=== PATIENT | male | born 1960 | race Caucasian/White ===

== ENCOUNTER → 2021-12-10 08:56 | Outpatient (BNVA) | payer OTHER, SELFPAY | PROVIDERS: PCP Internal Medicine; Visit Provider Psychiatry & Neurology Neurology | DX: G25.0 Essential tremor (principal); Z79.899 Other long term (current) drug therapy | CPT/HCPCS: 99212 ==

== ENCOUNTER → 2022-04-14 08:01 | Outpatient (BNVA) | payer OTHER, SELFPAY | PROVIDERS: PCP Internal Medicine; Visit Provider Psychiatry & Neurology Neurology | DX: G25.0 Essential tremor (principal) | CPT/HCPCS: 99212 ==

== ENCOUNTER 2023-10-19 12:26 | Outpatient (AMB) | payer OTHER, SELFPAY ==
--- NOTE | 2023-10-19 12:33 | A.OFFVIS_ITS ---
Vital Signs 10/19/23 12:35 Height 6 ft Weight 259 lb 6 oz BMI 35.2 BP 138/80 Blood Pressure Location Rt brachial Position Sitting Respiration 16 Pulse 61 Pulse Source Pulse Oximeter Pulse Oximetry (%) 96 Oxygen Delivery Method Room Air Intake Visit Reasons: 4mo f/u essential tremors - Confirmed Intake Note: Pt presents to the office for a follow up for familial tremors. 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 He reports mild improvement since he retired in Jun 2023. He is sleeping better. less stressed, exercising more etc.He is independent in his ADLS. He reported action and postural tremors since age 15 and was doing well on propranolol for 25 years . He was trialed on primidone and zonisamide and he did not notice much difference. He did not tolerate primidone . Anything that needs manual dexterity is harder. [facility] Medical History GERD (gastroesophageal reflux disease) Depression Surgical History History of vasectomy History of total knee replacement (TKR) Hx of knee surgery Hx of colonoscopy Family History Father Prostate cancer Bladder cancer Mother Skin cancer Brother Kidney stone Social History Household Members: Spouse Alcohol intake: current Alcohol intake frequency: a few times a week Alcohol type: beer Patient Tobacco Use Status: Never used Tobacco Current occupational status: employed Current occupation: dispatcher Physical Exam Vital Signs: Last Vital Signs Pulse 61 10/19/23 12:35 Resp 16 10/19/23 12:35 BP 138/80 10/19/23 12:35 Pulse Ox 96 10/19/23 12:35 Oxygen Delivery Method Room Air 10/19/23 12:35 BMI result Body Mass Index 35.2 Const General: cooperative, healthy appearing, comfortable and no acute distress Nutritional Appearance: overweight Orientation/consciousness: patient oriented x3 Limitations: no limitations HEENT Other: mild head tremors Eyes Pupils: Equal, round and reactive pupils present Neuro Other: Raymundo UE postural tremors No rest tremors Raymundo ACtion tremors- mild to moderate Voice tremors gait- no arm swing on left UE and rest tremors General: patient oriented x3 Cranial nerves: Yes Equal, round and reactive pupils present and Yes Normal facial strength present Cognition (Neuro): normal cognition Assessment & Plan Assessment & Plan (1) Familial tremor: Code(s): G25.0 - Essential tremor Category: Medical Plan He did not think fatimah trio will help him Will consider adding gabapentin continue propranolol LA 160mg qd Discussed about DBS and MR guided ultrasound therapy for tremors Coding Level of Care Code Est Pt Level 4 (31407) Diagnoses Familial tremor G25.0
[2023-10-19 12:35] VITALS: BP 138/80; PULSE 61; RESP 16; O2SAT 96; BMI 35.2
== END 2023-10-19 12:50 | disposition home or self-care (01) ==
PROVIDERS: PCP Internal Medicine; Visit Provider Psychiatry & Neurology Neurology
DX: G25.0 Essential tremor (principal)
CPT/HCPCS: 99214

== ENCOUNTER → 2023-10-19 12:26 | Outpatient (BNVA) | payer OTHER, SELFPAY | PROVIDERS: PCP Internal Medicine; Visit Provider Psychiatry & Neurology Neurology | DX: G25.0 Essential tremor (principal) | CPT/HCPCS: 99212 ==

== ENCOUNTER 2023-10-27 14:19 | Outpatient (AMB) | payer OTHER, SELFPAY ==
[2023-10-27 14:33] VITALS: BP 136/84; PULSE 65; RESP 14; TEMP 36.5; O2SAT 98; BMI 35.0
--- NOTE | 2023-10-27 14:33 | AM.OFFWIN_ITS ---
Intake Vital Signs 10/27/23 14:33 Height 6 ft Weight 258 lb 6 oz BMI 35.0 BP 136/84 Blood Pressure Location Rt brachial Position Sitting Respiration 14 Pulse 65 Pulse Source Pulse Oximeter Temp 97.7 F Temp Source Temporal Artery Scan Pulse Oximetry (%) 98 Intake Visit Reasons: Tick bite Patient Tobacco Use Status: Never used Tobacco Operator Specialist Communications Required: No Accompanied by: Self / Same As Patient Allergies No Known Allergies Allergy (Verified 10/27/23 14:38) Do you need a note to return to daycare/school/sports/work: No HPI Tick bite HPI Details 63 y/o male presents with complaints of a tick bite. He reports he first noticed it about 48 hours ago but was uncertain how long tick was attached. He notes tick was small and was unsure if he got it all off. [facility] Medical History GERD (gastroesophageal reflux disease) Depression Surgical History History of vasectomy History of total knee replacement (TKR) Hx of knee surgery Hx of colonoscopy Family History Father Prostate cancer Bladder cancer Mother Skin cancer Brother Kidney stone Social History Household Members: Spouse Alcohol intake: current Alcohol intake frequency: a few times a week Alcohol type: beer Patient Tobacco Use Status: Never used Tobacco Current occupational status: employed Current occupation: dispatcher Review of Systems Const Denies chills, Denies fatigue, Denies fever(s), Denies headache(s) and Denies weakness ENT Denies dizziness and Denies headache(s) Card Denies dyspnea Resp Denies cough, Denies dyspnea, Denies wheezing and Denies other (shortness of breath) Musc Denies numbness and Denies tingling Neuro Denies dizziness, Denies headache(s), Denies numbness, Denies tingling and Denies weakness Psych Denies anxiety and Denies depression Endo Denies fatigue Aller/Immun Denies wheezing Physical Exam Vital Signs: Last Vital Signs Temp 97.7 F 10/27/23 14:33 Pulse 65 10/27/23 14:33 Resp 14 10/27/23 14:33 BP 136/84 10/27/23 14:33 Pulse Ox 98 10/27/23 14:33 BMI result Body Mass Index 35.0 Const General: well developed; No acute distress Nutritional Appearance: well nourished Orientation/consciousness: patient oriented x3 HEENT Head: Yes normocephalic and Yes atraumatic Eyes General: appearance normal, both eyes and all related structures Pupils: Equal, round and reactive pupils present EOM: EOMs intact bilaterally Resp Effort & Inspection: normal respiratory effort Skin Other: Tick bite on back of R calf 1 cm local reaction and mild surrounding erythema, no obvious erythema migran rash Neuro General: patient oriented x3 and gait normal Cranial nerves: Yes Equal, round and reactive pupils present Psych Affect: normal affect Assessment & Plan Assessment & Plan (1) Tick bite: Code(s): W57.XXXA - Bitten or stung by nonvenomous insect and other nonvenomous arthropods, initial encounter Plan: Patient?is?uncertain?how?long?tick?was?attached Will?give?him?a?prophylactic?dose?of?doxycycline He?will?come?in?to?get?his?Lyme?titers?checked?in?about?2?weeks Or?if?patient?notices?an?expanding?erythema?migraines?rash?he?will?return If?either?of?the?above ?is?positive?for?Lyme,?will?start?28?day?course?of?doxycycline. No?need?to?remove?any?retained?mouth?parts. These?will?work?their?way?out?over?time Orders: Orders Lyme IgG/IgM w/reflex to WB Today W57.XXXA - Bitten or stung by nonvenomous insect and other nonvenomous arthropods, initial encounter Medications: New doxycycline hyclate 200 mg (2 x 100 mg) PO ONCE 1 day 2 tabs 0RF Coding Level of Care Code Est Pt Level 3 (41292) Diagnoses Tick bite W57.XXXA
== END 2023-10-27 14:46 | disposition home or self-care (01) ==
PROVIDERS: PCP Internal Medicine; Visit Provider Family Medicine
DX: S80.861A Insect bite (nonvenomous), right lower leg, initial encounter (principal); T63.481A Toxic effect of venom of other arthropod, accidental (unintentional), initial encounter
CPT/HCPCS: 99213

== ENCOUNTER 2023-11-14 12:05 | Outpatient (REF) | payer OTHER, SELFPAY ==
[2023-11-15 13:58] LABS: Lyme Abs Screen <0.90 index
== END 2023-11-14 12:06 | disposition home or self-care (01) ==
LOC: HO.WFDLDS 12:05
PROVIDERS: Visit Provider Family Medicine
DX: T14.8XXA Other injury of unspecified body region, initial encounter (principal); W57.XXXA Bitten or stung by nonvenomous insect and other nonvenomous arthropods, initial encounter; Y93.9 Activity, unspecified; Y92.9 Unspecified place or not applicable; Y99.9 Unspecified external cause status
CPT/HCPCS: 36415; 86617; 86618

== ENCOUNTER 2024-05-01 12:44 | Outpatient (AMB) | payer OTHER, SELFPAY ==
[2024-05-01 12:45] VITALS: BP 118/72; BMI 35.0
--- NOTE | 2024-05-01 12:45 | MHC.OFFVIS ---
Vital Signs 05/01/24 12:45 Height 6 ft Weight 258 lb BMI 35.0 BP 118/72 Blood Pressure Location Rt brachial Position Sitting Intake Visit Reasons: 6 mo f/u Intake Note: Patient presents for 6 month follow up Allergies No Known Allergies Allergy (Verified 05/01/24 12:47) HPI Comments Details: 64y/o male with familial tremors comes for follow up after more than 1 year .No change in tremors . He is sleeping better. less stressed, exercising more etc.He is independent in his ADLS.He has trouble with activities requiring fine motor coordination He reported action and postural tremors since age 15 and was doing well on propranolol for 25 years . He was trialed on primidone and zonisamide and he did not notice much difference. He did not tolerate primidone . [facility] Medical History GERD (gastroesophageal reflux disease) Depression Surgical History History of vasectomy History of total knee replacement (TKR) Hx of knee surgery Hx of colonoscopy Family History Father Prostate cancer Bladder cancer Mother Skin cancer Brother Kidney stone Social History Household Members: Spouse Alcohol intake: current Alcohol intake frequency: a few times a week Alcohol type: beer Patient Tobacco Use Status: Never used Tobacco Current occupational status: employed Current occupation: dispatcher Physical Exam Vital Signs: Last Vital Signs BP 118/72 05/01/24 12:45 BMI result Body Mass Index 35.0 Const General: cooperative, healthy appearing, comfortable and no acute distress Nutritional Appearance: overweight Orientation/consciousness: patient oriented x3 Limitations: no limitations HEENT Other: mild head tremors Eyes Pupils: Equal, round and reactive pupils present Neuro Other: Raymundo UE postural tremors No rest tremors Raymundo ACtion tremors- mild to moderate Voice tremors gait- no arm swing on left UE and rest tremors General: patient oriented x3 Cranial nerves: Yes Equal, round and reactive pupils present and Yes Normal facial strength present Cognition (Neuro): normal cognition Assessment & Plan Assessment & Plan (1) Familial tremor: Code(s): G25.0 - Essential tremor Category: Medical Plan He did not respond to zonisamide primiodne gabapentin continue propranolol LA 160mg qd Discussed about DBS and MR guided ultrasound therapy for tremors Coding Level of Care Code Est Pt Level 4 (63144) Diagnoses Familial tremor G25.0
== END 2024-05-01 13:13 | disposition home or self-care (01) ==
PROVIDERS: PCP Internal Medicine; Visit Provider Psychiatry & Neurology Neurology
DX: G25.0 Essential tremor (principal)
CPT/HCPCS: 99214

== ENCOUNTER → 2024-05-01 12:44 | Outpatient (BNVA) | payer OTHER, SELFPAY | PROVIDERS: PCP Internal Medicine; Visit Provider Psychiatry & Neurology Neurology | DX: G25.0 Essential tremor (principal) | CPT/HCPCS: 99212 ==

== ENCOUNTER 2025-05-01 12:17 | Outpatient (AMB) | payer OTHER, SELFPAY ==
[2025-05-01 12:20] VITALS: BP 128/84; PULSE 58; O2SAT 96; BMI 34.4
--- NOTE | 2025-05-01 12:20 | MHC.OFFVIS ---
Vital Signs 05/01/25 12:20 Height 6 ft Weight 253 lb 6 oz BMI 34.4 BP 128/84 Blood Pressure Location Rt brachial Position Sitting Pulse 58 Pulse Source Pulse Oximeter Pulse Oximetry (%) 96 Oxygen Delivery Method Room Air Intake Visit Reasons: 1r follow up Intake Note: Follow up Familial tremor Steam Locomotive Firer/Fireman Required: No Accompanied by: Self / Same As Patient Allergies No Known Allergies Allergy (Verified 05/01/25 12:20) HPI Comments Details: 65y/o male with familial tremors comes for follow up after more than 1 year . Mild increase in tremors He is sleeping OK, exercising more etc. He is independent in his ADLS.He has trouble with activities requiring fine motor coordination He reported action and postural tremors since age 15 and was doing well on propranolol for 25 years . He was trialed on primidone and zonisamide , gabapentin and he did not notice much difference. He did not tolerate primidone . [facility] Medical History GERD (gastroesophageal reflux disease) Depression Surgical History History of vasectomy History of total knee replacement (TKR) Hx of knee surgery Hx of colonoscopy Family History Father Prostate cancer Bladder cancer Mother Skin cancer Brother Kidney stone Social History Household Members: Spouse Alcohol intake: current Alcohol intake frequency: a few times a week Alcohol type: beer Patient Tobacco Use Status: Never used Tobacco Current occupational status: employed Current occupation: dispatcher Physical Exam Vital Signs: Last Vital Signs Pulse 58 05/01/25 12:20 BP 128/84 05/01/25 12:20 Pulse Ox 96 05/01/25 12:20 Oxygen Delivery Method Room Air 05/01/25 12:20 BMI result Body Mass Index 34.4 Const General: cooperative, healthy appearing, comfortable and no acute distress Nutritional Appearance: overweight Orientation/consciousness: patient oriented x3 Limitations: no limitations HEENT Other: mild head tremors Eyes Pupils: Equal, round and reactive pupils present Neuro Other: Raymundo UE postural tremors- moderate and action No rest tremors Raymundo ACtion tremors- mild to moderate Voice tremors gait- no arm swing on left UE and rest tremors General: patient oriented x3 Cranial nerves: Yes Equal, round and reactive pupils present and Yes Normal facial strength present Cognition (Neuro): normal cognition Assessment & Plan Assessment & Plan (1) Familial tremor: Code(s): G25.0 - Essential tremor Category: Medical Plan He did not respond to zonisamide primiodne gabapentin continue propranolol LA 160mg qd He is interested in DBS Trial fatimah dela cruz and refer to Dr.Ogbuji Gayle for DBS Coding Level of Care Code Est Pt Level 4 (90039) Complex visit Add On G2211 Diagnoses Familial tremor G25.0 BFADL Questionnaire: Cut food with a knife and fork: 2 - Able to do activity with a little effort, Use a spoon to drink soup: 3 - Able to do activity with a lot of effort, Hold a cup of tea: 4 - Cannot do the activity by yourself, Pour milk from a bottle or carton: 2 - Able to do activity with a little effort, Wash and dry dishes: 1 - Able to do activity without difficulty, [place] your teeth: 2 - Able to do activity with a little effort, Use a handkerchief to blow your nose: 1 - Able to do activity without difficulty, Use a bath: 1 - Able to do activity without difficulty, Use the lavoratory: 1 - Able to do activity without difficulty, Wash your face and hands: 1 - Able to do activity without difficulty, Tie your shoelaces: 1 - Able to do activity without difficulty, Do up buttons: 1 - Able to do activity without difficulty, Do up a zip: 1 - Able to do activity without difficulty, Write a letter: 2 - Able to do activity with a little effort, Put a letter in an envelope: 2 - Able to do activity with a little effort, Hold and read a newspaper: 2 - Able to do activity with a little effort, Dial a telephone: 2 - Able to do activity with a little effort, Make yourself understood on a telephone: 1 - Able to do activity without difficulty, Watch television: 1 - Able to do activity without difficulty, high school learning support teacher your change in a shop: 2 - Able to do activity with a little effort, Inset an electrical plug into a socket: 2 - Able to do activity with a little effort, Unlock your front door with a tompkins: 2 - Able to do activity with a little effort, Walk up and down stairs: 1 - Able to do activity without difficulty, Get up out of an armchair: 1 - Able to do activity without difficulty and Carry a full shopping ba - Able to do activity without difficulty
--- OUTSIDE RECORDS SUMMARY | 2025-05-01 15:21 | XMS_ITS | Encounter Summary ---
Author Organization [facility] Address [address] [place] [address] Care Team Providers Care Coffee Blender Name Role Phone Dragan Sandoval MD Primary Care Provider [phone] Carolyn Angulo MARKETING PROFESSOR Unavailable [phone] Unknown Pcp, Non [facility] Primary Care Provider Unava ilable Encounter Details Date Type Department Care Team (Late st Contact Info) Description 02/20/2009 Orders Only [facility] [address] [place] [id number] Carolyn Angulo NP [address] [place] [address] Social History Tobacco Use Types Packs/Day Years Used Date Smoking Tobacco: Never Alcohol Use Standard Drinks/Week Comments Yes 5 (1 standard drink = 0.6 oz pur e alcohol) Sex and Gender Information Value Date Recorded Sex Assigned at Not on file Legal Sex Male 12:32 AM EDT Gender Identity Not on file Sexual Orientation Not on file 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 Procedure Name Priority Date/Time Associated Diagnosis Comments HEMOGLOBIN A1C Routine 02/20/2009 Elevated Blood Sugar GLUCOSE (BLOOD) Routine 02/20/2009 Elevated Blood Sugar documented in this encounter Results * Due to [place] state law, this organization might not be sharing negative HIV tests. * HEMOGLOBIN A1C (02/20/2009) Hemoglobin A1C 5.7 0.0 - 5.9 % [facility] GLUCOSE MEAN VALUE 126 MG/DL [facility] 02/20/2009 02/20/2009 8:1 7 PM EDT us Carolyn [place] MARKETING PROFESSOR LABORATORY Final Resu lt [facility] [address] [place] [address] * (ABNORMAL) GLUCOSE (BLOOD) (02/20/2009) Glucose 108(H) 65 - 99 MG/DL [facility] 02/20/2009 02/20/2009 8:1 7 PM EDT us Carolyn Perez'Antonieta MARKETING PROFESSOR LAB SAME DAY RESULT Final Result Performing Organization Address City/[facility]/ZIP Co de Phone Number [facility] [address] [place] [address] documented in this encounter Visit Diagnoses Diagnosis Elevated blood sugar Other abnormal glucose documented in this encounter Care Teams Coffee Blender Relationship Specialty Start Date End Date Dragan Sandoval MD PCP - General 08/22/08 10/05/11 Carolyn Angulo NP PCP - Backup PCP 08/22/08 Unknown Pcp, Non [facility] PCP - General Family Medicine 10/06/11 documented as of this encounter
--- OUTSIDE RECORDS SUMMARY | 2025-05-01 15:21 | XMS_ITS | Clinical Summary ---
Author Organization [facility] Address [address] [place] [address] Care Team Providers Care Landfill Grader Name Role Phone Adele Carolyn COMMISSIONING MANAGER Unavailable [phone] Unknown Pcp, Non [facility]mg Primary Care Provider Unava ilable Allergies No known active allergies Medications CENTRUM OR TABS 1 TABLET DAILY 08/29/2008 Active FISH OIL 1200 MG OR CAPS 1CAPSULE DAILY 08/29/2008 Active GLUCOSAMINE COMPLEX OR TABS 1 TABLET DAILY 08/29/2008 Active NA CHONDROIT SULF-NA HYALURON 40-17 MG/ML IO SOLN 1 TABLET DAILY 08/29/2008 Active Propranolol HCl 80 MG OR [id number] :Benign essential tremor 1 CAPSULE DAILY 90 5 07/18/2009 Active Active Problems Problem Noted Date Diagnosed Date Impaired fasting glucose 02/26/2009 Overview (02/26/2009): Hx IFG improved fasting sugar from 125 to 108. Pt able to exercise now since cortisone inj left knee. Lost 4 pounds. Riding bike. Hgba1c 5.5. Lipids well controlled. Advised LDL goal <100. BP controlled <130/80. Advised pt to continue to watch diet, exercise and weight loss. F/u 6 months - rpt labs at that time. See [facility] for orders. Family history of malignant neoplasm of prostate 02/26/2009 Overview (02/26/2009): Father dx prostate CA age 70. Pt had PSA testing normal limits. Recheck at CPE in 6 months Left knee pain 08/29/2008 Overview (02/26/2009): Hx left knee surgery - microfracture and meniscus repair. Recent recurrence of left knee pain. Medial joint line. +crepitus. No swelling. Seeing ortho - had cortisone injection. Able to exercise now. Feels great. Benign essential tremor Overview (02/26/2009): FAMILIAL - HAD SINCE JR HIGH, DX [place] 1996. Stable on propranolol. Gastroesophageal reflux disease Overview (10/07/2020): Stable on medication. Refilled Rx. Idiopathic peripheral neuropathy Overview (08/29/2008): DX BY NEUROLOGY WHEN IN [employer] - stocking glove neuropathy bilateral feet. Symptoms stable. Some mornings hands feel tingly but resolves after start to move around. 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 Not on file Not on file Last Filed Vital Signs Vital Sign Reading Time Taken Comments Blood Pressure 122/74 02/26/2009 10:05 AM EDT Pulse 64 02/26/2009 10:05 AM EDT Temperature 36.4 C (97.6 F) 02/26/2009 10:05 AM EDT Respiratory Rate - - Oxygen Saturation - - Inhaled Oxygen Concentration - - Weight 110 kg (243 lb) 02/26/2009 10:05 AM EDT Height 182.9 cm (6') 09/27/2008 8:16 AM EDT Body Mass Index 32.96 09/27/2008 8:16 AM EDT Plan of Treatment Health Maintenance Due Date Last Done Comments Hepatitis C Screening 1960 DTaP/Tdap/Td (1 - Tdap) 1979 Pneumococcal 50+ years (1 of 1 - PCV) 2011 Zoster (Shingrix) (1 of 2) 2011 COVID-19 Vaccine (1 - 2024-2 6 season) 2025 Influenza (#1) 2025 RSV (1 - 1-dose 75+ series) 2036 HPV Vaccine (No Doses Required) Completed Hep A Aged Out No longer eligi ble based on patient's age to complete this topic Hep B Aged Out No longer eligi ble based on patient's age to complete this topic Hib Aged Out No longer eligi ble based on patient's age to complete this topic Meningococcal ACWY Aged Out No longer eligible based on patient's age to complete this topic Zoster (Zostavax) Discontinued Insurance [employer] FEE FOR SERVICE PPO Care Teams Landfill Grader Relationship Specialty Start Date End Date Carolyn Angulo NP PCP - Backup PCP 08/22/08 Unknown Pcp, Non g PCP - General Family Medicine 10/06/11
--- OUTSIDE RECORDS SUMMARY | 2025-05-01 15:21 | XMS_ITS | Encounter Summary ---
Author Organization [facility] Address [address] [place] [address] Care Team Providers Care Transplant Nurse Name Role Phone Niranjan Pederson MD Primary Care Provider Reason for Visit * Reason Onset Date Comments Referral 04/25/2025 Neurology Referr al Encounter Details Date Type Department Care Team (Late st Contact Info) Description 04/25/2025 Telephone Adult Medicine [facility] [address] [place] [phone] Niranjan Pederson MD [address] [place] [address] Social History Tobacco Use Types Packs/Day Years Used Date Smoking Tobacco: Never Smokeless Tobacco: Never Alcohol Use Standard Drinks/Week Comments Yes 0 (1 standard drink = 0.6 oz pur e alcohol) Housing Instability Answer Date Recorde d Are you worried that in the next 2 months you may not have stable housing? No 11/09/2024 Food Access & Nutrition Answer Date Rec orded Do you have access to a vari ety of food including fruits and vegetables? Yes 11/09/2024 Access to Healthcare Answer Date Record ed Within the last 3 months, ho w many times did you visit the emergency department for your medical care? 0 11/09/2024 Health Literacy Answer Date Recorded How often do you need to hav e someone help you when you read instructions, pamphlets, or other written material from your doctor or pharmacy? Never 11/09/2024 Caregiver: How often do you need to have someone help you when you read instructions, pamphlets, or other written material from your doctor or pharmacy? Not on file 11/09/2024 Financial Risk Answer Date Recorded How hard is it for you to pa y for the very basics like food, housing, medical care, and air conditioning / heating? Not very hard 11/09/2024 Transportation Answer Date Recorded Has the lack of transportati on kept you from meetings, work, or from getting things needed for daily living? No Has the lack of transportati on kept you from medical appointments or from getting medications? No 11/09/2024 Social Isolation Answer Date Recorded How often do you feel lonely or isolated from th ose around you? Never 11/09/2024 Food Risk Answer Date Recorded Within the past 12 months we worried whether our food would run out before we got money to buy more. Never true 11/09/2024 Within the past 12 months th e food we bought just didn't last and we didn't have money to get more. Never true 11/09/2024 Dependent Care Answer Date Recorded Do you need help finding or paying for care for your loved ones. For example, child neurologist or elderly care for an older adult? No 11/09/2024 Education Answer Date Recorded Do you think completing more education or training, like finishing a GED, going to college, or learning a trade, would be helpful for you? N/A 11/09/2024 Employment and Income Answer Date Recor ded During the last four weeks, have you been actively looking for work? No 11/09/2024 Living Situation Answer Date Recorded What is your living situation? Unrecognized valu e 11/09/2024 Sex and Gender Information Value Date Recorded Sex Assigned at Not on file Legal Sex Male 6:33 AM EST Gender Identity Not on file Sexual Orientation Not on file documented as of this encounter Progress Notes * Nahed Oviedo - 04/25/2025 12:34 PM EST What insurance does the patient have today? Payor: @[email or web address] Referrals cannot be processed if the insurance is not accurate. If the insurance listed above is NO BILLING INFORMATION FOUND FOR THIS ENCOUNTER then the patients correct insurance must be obtainedand registered in [facility] or their referral can not be processed. Name of person calling to request this referral? Leny Referred To Provider (Include first and last name): Dr Hartman NPI (if known): [phone] Order/Specialty requested Neurology Chief Complaint (Note: This is not a body part or a procedure): G25.0 Has the patient seen provider for this problem/Dx before? yes Referred To Provider Address: [address] [facility] Referred To Provider Referred To Provider Does patient have an appointment scheduled?: yes If yes, what is the date of the appointment?: 05/01/2025 Is this a retro request? no Number of visits requested: 6 Is this appointment related to: MVA or worker compensation? no documented in this encounter Plan of Treatment Upcoming Encounters Date Type Department Care Team (Late st Contact Info) Description 05/13/2025 11:00 AM EST Office Visit Adult Medicine [facility] [address] [place] [address] Justus Benavidez NP [address], [place] 06/19/2025 10:15 AM EST Office Visit General Surgery [facility] [address] [facility] [address] [place] [phone] José Miguel Schafer MD [address] [place] [phone] documented as of this encounter Visit Diagnoses Diagnosis Essential tremor- Primary documented in this encounter Additional Health Concerns Assessment Noted Time PHQ-9 Depression Total Score: 0 11/10/19 25 8:01 AM EDT documented as of this encounter Care Teams Transplant Nurse Relationship Specialty Start Date End Date Niranjan Pederson MD [address] [place] [address] PCP - General Internal Medicine 09/08/20 documented as of this encounter
--- OUTSIDE RECORDS SUMMARY | 2025-05-01 15:21 | XMS_ITS | Clinical Summary ---
Author Organization [address] Address [address] [place] [phone] Phone Care Team Providers Care Cargo Trimmer Name Role Phone Niranjan Pederson MD Primary Care Provider [phone] Allergies No known active allergies Medications atorvastatin (LIPITOR) 10 mg tablet Take 1 tablet (10 mg total) by mouth 1 (one) time each day. 10/10/2023 Active MULTIVITAMIN ORAL Take by mouth. Active propranolol LA (INDERAL LA) 160 mg 24 hr capsule TAKE 1 CAPSULE BY MOUTH DAILY 90 capsule 1 12/11/2024 Active famotidine (Pepcid) 20 mg tablet Take 1 tablet (20 mg total) by mouth 2 (two) times a day. 60 each 11 04/30/2024 04/30/20 25 Active Problems Problem Noted Date Diagnosed Date IFG (impaired fasting glucose) 03/19/2024 COVID-19 virus infection 09/11/2020 Overview (03/19/2024): 09/07/20 (Moderna dose 1 08/26, scheduled dose 2 09/24) Arthritis of right foot 08/13/2020 Hyperlipidemia 08/13/2020 Arthritis, degenerative 10/07/2014 Depressive disorder 09/13/2012 Diverticulitis of colon without hemorrhage 01/21 Tremor 08/25/2011 GERD (gastroesophageal reflux disease) 2 Overweight 08/25/2011 Encounters Date Type Department Care Team Description 04/25/2025 Telephone Adult Medicine [address] [phone] Niranjan Pederson MD from Last 3 Months Immunizations Immunization Administration Dates Next Due Influenza Quadravalent, MDCK , 0.5ml, preservative free (Flucelvax) 6mo and older 04/09/2019 Influenza Quadravalent, MDCK , 0.5ml, with preservative (Flucelvax) 6mo and older 05/11/2021,03/21/2020,04/09/2019,2017 Influenza Split 03/17/2017,03/25/2015 Influenza trivalent, 0.5mL, preservative free (Fluarix; FluLaval; Fluzone) ages 6mo and older (Afluria) 3 years and older 05/11/2021,03/21/2020,04/06/2018,2016,03/31/2016,03/25/2015 Influenza trivalent, with preservative (Fluzone; Afluria) 6mo and older 04/06/2018,03/05/2014,03/15/2013 Td Tetanus diptheria (Tdvax) 7yo and older 12/04/2021 Tdap Tetanus diptheria acell ular pertussis (Boostrix; Adacel) 7yo and older 10/20/2011 Surgical History Surgery Date Site/Laterality Comments FEMUR FRACTURE SURGERY 1988 PROCEDURE: NV OPEN TX FEMORAL FRACTURE DISTAL MED/LAT CONDYLE; COMMENT: left with internal fixation KNEE ARTHROSCOPY 2007 PROCEDURE: NV ARTHROSCOPY AID TX SPINE&/FX KNEE W/O FIXJ; COMMENT: Danna snider VASECTOMY 1999 PROCEDURE: HISTORICAL VASECTOMY COLONOSCOPY 01/20/12 PROCEDURE: HISTORICAL COLONOSCOPY; COMMENT: tics TOTAL KNEE ARTHROPLASTY 12/14/2019 Left PROCEDURE: NV ARTHRP KNE CONDYLE&PLATU MEDIAL&LAT COMPARTMENTS Medical History Medical History Date Comments GERD (gastroesophageal reflux disease) DX:GERD (gastroesophageal reflux disease) Benign essential tremor DX:Benig n essential tremor Peripheral neuropathy DX:Periphe ral neuropathy; COMMENT: both feet GERD (gastroesophageal reflux disease) 08/25/2011 DX:GERD (gastroesophageal reflux disease) Essential and other specifie d forms of tremor 08/25/2011 DX:Essential and other speci fied forms of tremor Overweight(278.02) 08/25/2011 DX:Overweight (278.02) Diverticulosis of colon (wit hout mention of hemorrhage) 01/22/2012 DX:Diverticulosis of colon ( without mention of hemorrhage) Knee pain DX:Knee pain IFG (impaired fasting glucose) D X:IFG (impaired fasting glucose) COVID-19 virus infection 09/11/2020 DX:COVI D-19 virus infection; COMMENT: 09/07/20 (Moderna dose 1 08/26, scheduled dose 2 09/24) Family History Medical History Relation Name Comments Other cancer Mother skin Other: benign essential tremor Mother Relation Name Status Comments Brother Alive healthy Father prostate cancer 1999, bladder cancer Maternal Grandfather Maternal Grandmother (Age 80s) h eart Mother Alive Skin cancer Paternal Grandfather Paternal Grandmother [place] Sister Alive healthy Social History Tobacco Use Types Packs/Day Years Used Date Smoking Tobacco: Never Smokeless Tobacco: Never Tobacco Cessation:Counseling Given: Not Answered Alcohol Use Standard Drinks/Week Comments Yes 0 [...] for your loved ones. For example, child caregiver or elderly care for an older adult? [...] on file Sexual Orientation Not on file Obstetrics History Last Filed Vital Signs Vital Sign Reading Time Taken Comments Blood Pressure 112/80 11/09/2024 10:38 AM EDT Pulse 58 11/09/2024 10:38 AM EDT Temperature 36.1 C (96.9 F) 11/09/2024 10:38 AM EDT Respiratory Rate 20 11/09/2024 10:38 AM EDT Oxygen Saturation - - Inhaled Oxygen Concentration - - Weight 113 kg (249 lb) 11/09/2024 10:38 AM EDT Height 182.9 cm (6') 11/09/2024 10:38 AM EDT Body Mass Index 33.77 11/09/2024 10:38 AM EDT Plan of Treatment Upcoming Encounters Date Type Department Care Team (Late st Contact Info) Description 05/13/2025 11:00 AM EST Office Visit Adult Medicine [address] [phone] Justus Benavidez, SEGUN [address] [place], [place] 06/19/2025 10:15 AM EST Office Visit General Surgery - [address] [place] [address] José Miguel Schafer MD [address] [place] [address] Health Maintenance Due Date Last Done Comments Pneumococcal Vaccine: 50+ Years (1 of 1 - PCV) 2011 Zoster Vaccines (1 of 2) 2011 COVID-19 Vaccine (5 - 2024- season) 2025 03/23/2024, 05/15/2021, 09/24/2020, Additional history exists Influenza Vaccine (#1) 2025 , 05/11/2021, 05/11/2021, Additional history exists Social Influencers of Health Screening 11/09/2025 11/09/2024 Cholesterol Screening (Lipid Panel) 10/11/2028 10/12/2023, 10/12/2023 DTaP,Tdap,and Td Vaccines (3 - Td or Tdap) 12/05/2031 12/04/2021, 10/20/2011 Colorectal Cancer Screening: Colonoscopy 08/09/2032 08/09/2022 RSV Immunization Adult Patients (1 - 1-dose 75+ series) 2036 HIV Screening Completed 03/14/2019 Hepatitis C Screening Completed 03/14/2019 Depression Screening Completed 11/09/2024 HIB Vaccines Aged Out No longer eligi ble based on patient's age to complete this topic HPV Vaccines Aged Out No longer eligi ble based on patient's age to complete this topic Hepatitis A Vaccines Aged Out No long er eligible based on patient's age to complete this topic Hepatitis B Vaccines Aged Out No long er eligible based on patient's age to complete this topic IPV Vaccines Aged Out No longer eligi ble based on patient's age to complete this topic MMR Vaccines Aged Out No longer eligi ble based on patient's age to complete this topic Meningococcal ACWY Vaccine Aged Out N o longer eligible based on patient's age to complete this topic Meningococcal B Vaccine Aged Out No l onger eligible based on patient's age to complete this topic RSV Immunization Patients Under 20 months Aged Out No longer eligible based on patient's age to complete this topic Varicella Vaccines Aged Out No longer eligible based on patient's age to complete this topic Procedures Procedure Name Priority Date/Time Associated Diagnosis Comments LIPID PANEL Routine 10/12/2023 COLONOSCOPY Routine 08/09/2022 HEPATITIS C SCREENING Routine 03/14/2019 HIV SCREENING Routine 03/14/2019 from Last 3 Months or Most Recently Relevant to Health Maintenance Results * Lipid panel (10/12/2023) LDL/HDL Ratio 4 0 - 4 Triglycerides 126 0 - 150 mg/dL Cholesterol 161 0 - 200 mg/dL HDL 43 >=40 mg/dL LDL Cholesterol 93 0 - 100 mg/dL Blood Venous blood specimen / Unknown [facility] Provider LAB BLOOD ORDERABLES Emily l Result * Colonoscopy (08/09/2022) Colonoscopy Abstracted, Positive Anatomical Region Laterality Modality Other [facility] Provider HEALTH MAINTENANCE Final Result * HIV Screening (03/14/2019) Pathologist [facility] HIV Screening Abstracted [facility] Provider HEALTH MAINTENANCE Final Result * Hepatitis C Screening (03/14/2019) Pathologist [facility] Hepatitis C Screening Abstracted Historical Provider HEALTH MAINTENANCE Final Result from Last 3 Months or Most Recently Relevant to Health Maintenance [place] [phone] [employer] Care Teams Cargo Trimmer Relationship Specialty Start Date End Date Niranjan Pederson MD [address] [place] [address] PCP - General Internal Medicine 09/08/20
--- OUTSIDE RECORDS SUMMARY | 2025-05-01 15:21 | XMS_ITS | Encounter Summary ---
Author Organization [facility] Address [address] [place] [address] Care Team Providers Care Manager Instrumentation Name Role Phone Dragan Sandoval MD Primary Care Provider [phone] Carolyn Angulo HEAD FILTER TANK TENDER HELPER Unavailable [phone] Unknown Pcp, Non [facility] Primary Care Provider Unava ilable Encounter Details Date Type Department Care Team (Late st Contact Info) Description 09/03/2008 Orders Only [place] [address] [place] [phone] Breonna Reardon LVN LPN [address] [place] [address] Social History Tobacco Use Types Packs/Day Years [...] 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 * HEMOGLOBIN A1C (02/20/2009) Hemoglobin A1C 5.7 0.0 - 5.9 % [facility] GLUCOSE MEAN VALUE 126 MG/DL [facility] 02/20/2009 02/20/2009 8:1 7 PM EDT us Carolyn L'Antonieta HEAD FILTER TANK TENDER HELPER LABORATORY Final Resu lt Performing Organization Address City/[facility]/ZIP Co de Phone Number [facility] [address] [place] [address] * (ABNORMAL) GLUCOSE (BLOOD) (02/20/2009) Glucose 108(H) 65 - 99 MG/DL [facility] 02/20/2009 02/20/2009 8:1 7 PM EDT us Carolyn L'Antonieta HEAD FILTER TANK TENDER HELPER LAB SAME DAY RESULT Final Result Performing Organization Address [facility] Co de Phone Number [facility] [address] [place] [address] documented in this encounter Visit Diagnoses Diagnosis Elevated blood sugar- Primary Other abnormal glucose documented in this encounter Care Teams Manager Instrumentation Relationship Specialty Start Date End Date Dragan Sandoval MD PCP - General 08/22/08 10/05/11 Carolyn Angulo NP PCP - Backup PCP 08/22/08 Unknown Pcp, Non [facility] PCP - General Family Medicine 10/06/11 documented as of this encounter
--- OUTSIDE RECORDS SUMMARY | 2025-05-01 15:21 | XMS_ITS | Encounter Summary ---
Author Organization [facility] Address [address] [place] [address] Care Team Providers Care Multi Sensor Operator Name Role Phone Dragan Sandoval MD Primary Care Provider [phone] Carolyn Angulo NATIONAL SALES REPRESENTATIVE Unavailable [phone] Unknown Pcp, Non [facility] Primary Care Provider Unava ilable Encounter Details Date Type Department Care Team (Late st Contact Info) Description 08/30/2008 Orders Only [facility] [address] [place] [phone] Carolyn Angulo NP [address] [place] [address] Social History Tobacco Use Types Packs/Day Years [...] 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 Procedure Name Priority Date/Time Associated Diagnosis Comments BASIC METABOLIC PANEL W/GLOMERULAR FILTRATION RATE (EGFR) Routine 08/30/2008 Routine General Medical Examination at a Health Care Facility Screening for Diabetes Mellitus FECAL GLOBIN IMMUNOCHEMICAL (INSURE) PREFERRED OCCULT BLOOD TEST Routine 08/30/2008 Special Screening for Malignant Neoplasms, Colon LIPID PANEL + CARDIAC RISK WITH REFLEX TO LDL DIRECT Routine 08/30/2008 Screening for Lipoid Disorders PSA (PROSTATE SPECIFIC ANTIGEN) TOTAL, ANNUAL SCREEN Routine 08/30/2008 Prostate Cancer Screening CBC 5 PART DIFF Routine 08/30/2008 Routine General Medical Examination at a Health Care Facility ALANINE AMINOTRANSFERASE (ALT), SERUM Routine 08/30/2008 Screening for Lipoid Disorders ASPARTATE AMINOTRANSFERASE (AST), SERUM Routine 08/30/2008 Screening for Lipoid Disorders THYROID CASCADE Routine 08/30/2008 Routine General Medical Examination at a [facility] Care Facility FOLATE (FOLIC ACID) Routine 08/30/2008 Idiopathic Peripheral Neuropathy (HCC) VITAMIN B12 Routine 08/30/2008 Idiopathic Peripheral Neuropathy (HCC) URINALYSIS, COMPLETE (DIP & MICRO) Routine 08/30/2008 Routine General Medical Examination at a [facility] Care Facility documented in this encounter Results * Due to [place] state law, this organization might not be sharing negative HIV tests. * FOLATE (FOLIC ACID) (08/30/2008) FOLATE > 24.0 3.4 OR ABOVE NG/ML 08/30/2008 08/30/2008 7:2 8 PM EDT us Carolyn L'Antonieta NATIONAL SALES REPRESENTATIVE LABORATORY Final Resu lt * VITAMIN B12 (08/30/2008) VITB12 403 200 - 1100 PG/ML 08/30/2008 08/30/2008 7:2 8 PM EDT us Carolyn L'Antonieta NATIONAL SALES REPRESENTATIVE LABORATORY Final Resu lt * (ABNORMAL) URINALYSIS, COMPLETE (DIP & MICRO) (08/30/2008) Pathologist [facility] COLOR (URINE) YELLOW YELLOW APPEARANCE (URINE) TURBID(A) CLEAR SPECIFIC GRAVITY 1.024 1.001 - 1.035 PH (URINE) 5.0 5.0 - 8.0 PROTEIN (URINE) NEG NEG GLUCOSE (URINE) NEG NEG Ketones (Urine) NEG NEG BILIRUBIN (URINE) NEG NEG BLOOD (URINE) NEG NEG WBC (URINE) NEG NEG NITRITE (URINE) NEG NEG WBC (URINE) 0 0-4/HPF RBC (Urine Sed) 0 0-3/HPF EPITHELIAL CELLS.SQUAMOUS (URINE SED) 0 0-5/HPF EPITHELIAL CELLS.TRANSITI ONAL (URINE SED) 0 0-5/HPF EPITHELIAL CELLS.RENAL (URINE SED) 0 0-3/HPF BACTERIA (URINE) NONE SEEN NONE SEEN URINE CRYSTALS MANY AMORPHOUS 08/30/2008 08/30/2008 7:2 8 PM EDT Carolyn Angulo LAB SAME DAY RESULT Final Result * THYROID CASCADE (08/30/2008) [facility] TSH, THYROTROPIN 0.90 0.40 - 4.50 UIU/ML 08/30/2008 08/30/2008 7:2 8 PM EDT Carolyn Angulo LABORATORY Final Resu lt * CBC 5 PART DIFF (08/30/2008) [facility] WHITE BLOOD COUNT 5.2 3.8 - 10.8 THOUS/UL RBC 4.84 4.20 - 5.80 MIL/UL Hemoglobin 15.4 13.2 - 17.1 G/DL HCT (HEMATOCRIT) 44.1 38.5 - 50.0 % MCV 91.1 80.0 - 100.0 FL MCH 31.9 27.0 - 33.0 PG MCHC 35.0 32.0 - 36.0 G/DL BAND % 0 0 - 5 % NEUTROPHIL % 59 48 - 75 % LYMPHOCYTE % 31 17 - 40 % MONOCYTE % 7 0 - 14 % EOSINOPHIL % 3 0 - 5 % BASOPHIL % 0 0 - 3 % ATYPICAL LYMPHOCYTE % 0 0 - 5 % PLATELETS 236 140 - 400 THOUS/UL BANDS # 0 0 - 750 CELLS/MCL NEUTROPHILS # 3068 1500 - 7800 CELLS/MCL LYMPHOCYTES # 1612 850 - 3900 CELLS/MCL MONOCYTES # 364 200 - 950 CELLS/MCL EOSINOPHILS # 156 15 - 550 CELLS/MCL BASOPHILS # 0 0 - 200 CELLS/MCL ATYPICAL LYMPHOCYTES # 0 0 - 200 CELLS/MCL RDW 12.7 11.0 - 15.0 % MPV 8.1 7.5 - 11.5 FL 08/30/2008 08/30/2008 7:2 8 PM EDT us Carolyn L'Antonieta NATIONAL SALES REPRESENTATIVE LAB SAME DAY RESULT Final Result * (ABNORMAL) BASIC METABOLIC PANEL W/GLOMERULAR FILTRATION RATE (EGFR) (08/30/2008) CALCIUM 9.3 8.6 - 10.2 MG/DL BUN 15 7 - 25 MG/DL CREATININE 1.08 0.78 - 1.34 MG/DL Glucose 125(H) 65 - 99 MG/DL SODIUM 141 135 - 146 MMOL/L POTASSIUM 4.3 3.5 - 5.3 MMOL/L CHLORIDE 105 98 - 110 MMOL/L CARBON DIOXIDE 25 21 - 33 MMOL/L GFR > 60 60 AND ABOVE Comment:UNITS: ML/MIN/1.73 S Q METERS EGFR > 60 60 AND ABOVE Comment:UNITS: ML/MIN/1.73 S Q METERS 08/30/2008 08/30/2008 7:2 8 PM EDT Narrative 08/31/2008 3:24 AM EDT Please note that this estimated GFR does not include an adjustment for the patient's height or weight, and can therefore, be viewed as reliable only for patients with heights between 60 and 72 . More precise quantification using a 24-hour urine sample or height-based algorithm is recommended for patients outside of this range of height and for those individuals with more precise needs for GFR calculation. us Carolyn FlornetinBrockton NATIONAL SALES REPRESENTATIVE LABORATORY Final Resu lt * ASPARTATE AMINOTRANSFERASE (AST), SERUM (08/30/2008) Pathologist [facility] AST (SGOT) 14 10 - 40 U/L 08/30/2008 08/30/2008 7:2 8 PM EDT us Carolyn L'Antonieta NATIONAL SALES REPRESENTATIVE LAB SAME DAY RESULT Final Result * ALANINE AMINOTRANSFERASE (ALT), SERUM (08/30/2008) Pathologist [facility] ALT (SGPT) 20 9 - 60 U/L 08/30/2008 08/30/2008 7:2 8 PM EDT us Carolyn L'Antonieta NATIONAL SALES REPRESENTATIVE LAB SAME DAY RESULT Final Result * PSA (PROSTATE SPECIFIC ANTIGEN) TOTAL, ANNUAL SCREEN (08/30/2008) [facility] PSA 1.0 0 - 4.0 NG/ML Comment: THIS TEST WAS PERFORMED USING THE SIEMENS (Nix Hydra) CHEMILUMINESCENT METHOD. VALUES OBTAINED FROM DIFFERENT ASSAY METHODS CANNOT BE USED INTERCHANGEABLY. PSA LEVELS, REGARDLESS OF VALUE, SHOULD NOT BE INTERPRETED ABSOLUTE EVIDENCE OF THE PRESENCE OR ABSENCE OF DISEASE. 08/30/2008 08/30/2008 7:2 8 PM EDT us Carolyn L'Antonieta NATIONAL SALES REPRESENTATIVE LABORATORY Final Resu lt * FECAL GLOBIN IMMUNOCHEMICAL (INSURE) PREFERRED OCCULT BLOOD TEST (08/30/2008) [facility] FECAL GLOBIN IMMUNOCHEMICAL TEST (SUSI) SEE TEXT Comment: SOURCE: UNKNOWN NOT DETECTED 08/30/2008 08/31/2008 12: 55 AM EDT us Carolyn L'Brockton NATIONAL SALES REPRESENTATIVE LABORATORY Final Resu lt * (ABNORMAL) LIPID PANEL + CARDIAC RISK WITH REFLEX TO LDL DIRECT (08/30/2008) [facility] CHOLESTEROL, TOTAL 172 125 - 200 MG/DL TRIGLYCERIDES 175(H) 30 - 149 MG/DL HDL-CHOLESTEROL 42 40 - 77 MG/DL LDL-CHOLESTEROL 95 62 - 130 MG/DL Comment: RISK CATEGORY: LDL-CHOLESTEROL GOAL CHD AND CHD RISK EQUIVALENTS: <100 MULTIPLE (2+) FACTORS: <130 ZERO TO ONE RISK FACTOR: <160 CHD RELATIVE RISK RATIO (TOTAL/HDL) 4.10 0.0 - 5.0 Comment:(0.7 X AVERAGE) 08/30/2008 08/30/2008 7:2 8 PM EDT us Carolyn Angulo NATIONAL SALES REPRESENTATIVE LABORATORY Final Resu lt documented in this encounter Visit Diagnoses Diagnosis Screening for lipoid disorders Special screening for malignant neoplasms, colon Prostate cancer screening Special screening for malignant neoplasm of prostate Routine general medical examination at a health care facility Screening for diabetes mellitus Idiopathic peripheral neuropathy Unspecified hereditary and idiopathic peripheral neuropathy documented in this encounter Care Teams Multi Sensor Operator Relationship Specialty Start Date End Date Dragan Sandoval MD PCP - General 08/22/08 10/05/11 Carolyn Angulo NP PCP - Backup PCP 08/22/08 Unknown Pcp, Non Rmg PCP - General Family Medicine 10/06/11 documented as of this encounter
== END 2025-05-01 12:51 | disposition home or self-care (01) ==
LOC: HO.HSMS 12:17
PROVIDERS: PCP Internal Medicine; Visit Provider Psychiatry & Neurology Neurology
DX: G25.0 Essential tremor (principal)
CPT/HCPCS: 99214

== ENCOUNTER → 2025-05-01 12:17 | Outpatient (BNVA) | payer OTHER, SELFPAY | PROVIDERS: PCP Internal Medicine; Visit Provider Psychiatry & Neurology Neurology | DX: G25.0 Essential tremor (principal) | CPT/HCPCS: 99212 ==